=== PATIENT | male | born 1985 | race African-American/Black ===

== ENCOUNTER 2018-04-28 07:31 | Emergency (ER) | payer SELFPAY ==
--- NOTE | 2018-04-28 07:54 | ED ---
HPI Chest Pain - HPI Summary HPI Summary: This patient is a 33 year old male presenting to [facility] accompanied by police with a chief complaint of chest pain since the middle of the night. Patient states that he woke up in the middle of the night with the pain, describing it as squeezing. Patient started feeling numb from the left side of his chest to bilateral fingertips, then states the sensation spread to the whole body and face. Patient states the pain radiated to his legs as well. Patient then states he had blurry vision. The pain is rated 10/10 in severity. Symptoms aggravated by nothing. Symptoms alleviated by nothing. Patient additionally reports back pain. Patient denies a hx of diabetes, HTN, HLD. He is a former smoker, 1/2ppd for years, but quit a week ago when he was incarcerated. He states he has no drugs or alcohol in his system. - History of Current Complaint Chief Complaint: EDChestPainROMI Time Seen by Provider: 04/28/18 07:35 Hx Obtained From: Patient Onset/Duration: Started Hours Ago, Still Present Timing: Constant Initial Severity: Moderate Pain Intensity: 10 Pain Scale Used: 0-10 Numeric Chest Pain Location: Diffuse Chest Pain Radiates: Yes Chest Pain Radiates To:: Shoulder, Arm, Jaw, Neck, Other - legs Character: Pressure/Squeezing Aggravating Factor(s): Nothing Alleviating Factor(s): Nothing Associated Signs and Symptoms: Positive: Other: - leg pain, numbness, blurred/ dark vision - Allergy/Home Medications Allergies/Adverse Reactions: Allergies Allergy/AdvReac Type Severity Reaction Status Date / Time codeine Allergy Hives Verified 04/28/18 07:45 Home Medications: Home Medications NK [No Home Medications Reported] 04/28/18 [History Confirmed 04/28/18] PMH/Surg Hx/FS Hx/Imm Hx Previously Healthy: Yes Endocrine/Hematology History: Denies: Hx Anticoagulant Therapy, Hx Diabetes, Hx Thyroid Disease Cardiovascular History: Denies: Hx Hypertension, Hx Pacemaker/ICD Respiratory History: Denies: Hx Asthma, Hx Chronic Obstructive Pulmonary Disease (COPD) GI History: Denies: Hx Ulcer History: Denies: Hx Renal Disease Musculoskeletal History: Reports: Hx Back Problems - chronic cervical back pain Sensory History: Reports: Hx Contacts or Glasses Denies: Hx Hearing Aid Opthamlomology History: Reports: Hx Contacts or Glasses Neurological History: Denies: Hx Dementia, Hx Seizures Psychiatric History: Reports: Hx Depression, Hx Suicide Attempt, Hx of Violent Episodes Against Others Denies: Hx Eating Disorder, Hx Panic Disorder, Hx Substance Abuse - Surgical History Surgery Procedure, Year, and Place: PLATE AND SCREWS IN [place]EKBONE LEFT SIDE 2007. wisdom teeth Infectious Disease History: No Infectious Disease History: Denies: Hx Hepatitis, Hx Human Immunodeficiency Virus (HIV), History Other Infectious Disease, Traveled Outside the [place] in Last 30 Days - Family History Known Family History: Negative: Cardiac Disease, Hypertension, Diabetes - Social History Occupation: Unemployed Alcohol Use: Rare Hx Substance Use: Yes Substance Use Type: Reports: Cocaine, Marijuana, Other - hallucinogenics Hx Tobacco Use: Yes Smoking Status (MU): Former Smoker Type: Cigarettes Amount Used/How Often: 1/2 PPD Review of Systems Negative: Fever Positive: Blurred Vision Positive: Chest Pain Positive: Numbness All Other Systems Reviewed And Are Negative: Yes Physical Exam - Summary Physical Exam Summary: VITAL SIGNS: Reviewed. GENERAL: Patient is a well-developed and nourished male who is lying comfortable in the stretcher. Patient is not in any acute respiratory distress. HEAD AND FACE: No signs of trauma. No ecchymosis, hematomas or skull depressions. No sinus tenderness. EYES: PERRLA, EOMI x 2, No injected conjunctiva, no nystagmus. EARS: Hearing grossly intact. Ear canals and tympanic membranes are within normal limits. MOUTH: Oropharynx within normal limits. NECK: Supple, trachea is midline, no adenopathy, no JVD, no carotid bruit, no c- spine tenderness, neck with full ROM. CHEST: Symmetric, no tenderness at palpation LUNGS: Clear to auscultation bilaterally. No wheezing or crackles. CVS: Regular rate and rhythm, S1 and S2 present, no murmurs or gallops appreciated. ABDOMEN: Soft, non-tender. No signs of distention. No rebound no guarding, and no masses palpated. Bowel sounds are normal. EXTREMITIES: FROM in all major joints, no edema, no cyanosis or clubbing. NEURO: Alert and oriented x 3. No acute neurological deficits. Speech is normal and follows commands. SKIN: Dry and warm Triage Information Reviewed: Yes Vital Signs On Initial Exam: Initial Vitals Temp Pulse Resp BP Pulse Ox 99.3 F 82 16 162/101 100 04/28/18 07:36 04/28/18 07:36 04/28/18 07:36 04/28/18 07:36 04/28/18 07:36 Vital Signs Reviewed: Yes Diagnostics - Vital Signs Vital Signs Temp Pulse Resp BP Pulse Ox 04/28/18 07:48 77 17 100 04/28/18 07:36 99.3 F 82 16 162/101 100 - Laboratory Result Diagrams: 04/28/18 07:56 04/28/18 07:56 Lab Statement: Any lab studies that have been ordered have been reviewed, and results considered in the medical decision making process. - Radiology CXR Radiology Interpretation Completed By: Radiologist Summary of Radiographic Findings: CXR reveals, per radiologist, IMPRESSION: NO ACTIVE CARDIOPULMONARY DISEASE. ED physician has reviewed this radiology report. - EKG 0747 Cardiac Rate: NL EKG Rhythm: Sinus Rhythm - 78 BPM Summary of EKG Findings: NSR (78 BPM), no ST elevations, normal axis. 1135 Cardiac Rate: NL EKG Rhythm: Sinus Rhythm - 64 BPM Summary of EKG Findings: An EKG, taken 1135, reveals NSR (64 BPM), no ST elevations, normal axis. Similar to previous EKG. Chest Pain Course/Dx - Course Assessment/Plan: This patient is a 33 year old male presenting to [facility] accompanied by police with a chief complaint of chest pain since the middle of the night. Patient states that he woke up in the middle of the night with the pain, describing it as squeezing. Patient started feeling numb from the left side of his chest to bilateral fingertips, then states the sensation spread to the whole body and face. Patient states the pain radiated to his legs as well. Patient then states he had blurry vision. The pain is rated 10/10 in severity. Symptoms aggravated by nothing. Symptoms alleviated by nothing. Patient additionally reports back pain. Patient denies a hx of diabetes, HTN, HLD. He is a former smoker, 1/2ppd for years, but quit a week ago when he was incarcerated. He states he has no drugs or alcohol in his system. Patient has no past medical history significant for AZ, dyslipidemia, diabetes or sudden . In the ED course the patient was placed in a vehicle monitor technician, he was given aspirin, Lopressor and nitroglycerin. Blood work without any significant abnormality except for creatinine 1.27. Glucose is 113. The troponin 0.00. Second troponin increased to 0.06. Patient reports that he is having more chest tightness therefore the patient was given nitroglycerin, Plavix and heparin. I discussed the case with Dr. Martin from cardiology. He agrees for the patient to be given Plavix 300 mg and Lovenox as well as the nitroglycerin. He will consult for the patient. Second EKG shows an normal sinus rhythm at 62 bpm without any stimulations. I discuss my physical exam, findings and test results with Dr. Ann from the hospitalist services and he agrees to admit patient to his services. Patient is hemodynamically stable alert and oriented x 3. ADDENDUM: After the patient was admitted to Dr. Ann services she reports that she ran the troponin again in the same sample where it came back elevated and the troponin is reported as 0.01. Therefore, she recommends for the patient to be discharged back to detention and follow-up with primary care physician. The patient reports no chest pain at this point and he is feeling better. Therefore the patient will be discharged back to the detention and he was recommended to return to the emergency department if he develops any chest pain , shortness of breath, palpitations, or any other symptom. The patient understands and agrees. - Chest Pain Differential Diagnosis/HQI/PQRI: Acute AZ, ACS, Angina, CHF, Chest Wall, GI Disease, Lower Respiratory Infection - Diagnoses Provider Diagnoses: Chest pain Discharge - Sign-Out/Discharge Documenting (check all that apply): Patient Departure - Discharge Plan Condition: Stable Disposition: HOME Patient Education Materials: Chest Pain (ED) Referrals: Brenna Cardenas MD [Primary Care Provider] - 3 Days Additional Instructions: Return to the ED for any new or worsening symptoms. - Billing Disposition and Condition Condition: STABLE Disposition: Home - Attestation Statements Document Initiated by Wisam: Yes Documenting Scribe: Ricardo Riley Provider For Whom Wisam is Documenting (Include Credential): Hardeep Howe MD Scribe Attestation: Ricardo Hart scribed for Hardeep Howe MD on 04/28/18 at 1846. Scribe Documentation Reviewed: Yes Provider Attestation: The documentation as recorded by the Ricardo garrison accurately reflects the service I personally performed and the decisions made by me, Hardeep Howe MD
[2018-04-28] MEDS ORDERED: Nitroglycerin TAB 0.4 MG* 0.4 MG TAB SL ONE ×2 (07:55→11:32)
[2018-04-28] MEDS ORDERED: Aspirin 81 mg CHEW TAB* 81 MG TAB.CHEW PO ONE (07:55)
[2018-04-28 08:07] LABS: ABS Basophils 0.1 10^3/ul (0-0.2); ABS Eosinophils 0 10^3/ul (0-0.6); ABS Lymphocytes 3.8 10^3/ul (1.0-4.8); ABS Monocytes 0.5 10^3/ul (0-0.8); ABS Neutrophils 3.9 10^3/ul (1.5-7.7); ABS Nucleated RBC 0 10^3/ul; Eosinophil % 0.6 % (0-6); Hematocrit 46 % (42-52); Hemoglobin 15.6 g/dl (14.0-18.0); Lymphocyte % 45.9 % (25-47); Mean Corpuscular HGB Conc 34 g/dl (31-36); Mean Corpuscular Hemoglobin 32 pg (27-31); Mean Corpuscular Volume 93 fL (80-94); Mean Platelet Volume 7.7 fL (7.4-10.4); Nucleated Red Blood Cells % 0.1; Platelet Count 346 10^3/ul (150-450); Red Blood Count 4.92 10^6/ul (4.00-5.40); Red Cell Distribution Width 13 % (10.5-15); White Blood Count 8.4 10^3/ul (3.5-10.8)
[2018-04-28 08:29] LABS: EGFR Non-African American 64.9 (>60)
[2018-04-28] MEDS ORDERED: Ketorolac INJ* 30 MG/ML 1 ML VIAL IV PUSH ONE (08:56)
[2018-04-28] MEDS ORDERED: Ketorolac INJ* 30 MG/ML 1 ML VIAL ONE (08:57)
[2018-04-28] MEDS ORDERED: Metoprolol Tartrate TAB* 25 MG PO ONE (11:32)
[2018-04-28] MEDS ORDERED: Clopidogrel TAB* 300 MG PO ONE (11:39)
[2018-04-28] MEDS ORDERED: Enoxaparin(*) 100 MG/ML SYR SUBCUT ONE (11:39)
[2018-04-28 14:23] VITALS: BP 144/87
--- NOTE | 2018-04-28 20:25 | CONS ---
CC: Dr. Cardenas * HOSPITAL MEDICINE CONSULTATION REPORT: DATE OF CONSULT: 04/28/18 - EMERGENCY DEPT PRIMARY CARE PHYSICIAN: Dr. Cardenas. ATTENDING PHYSICIAN: Marion Ann DO (dictation provided by Dianna Castillo NP) REASON FOR CONSULT: Question regarding need for admission. HISTORY OF PRESENT ILLNESS: Mr. De Guzman is a 33-year-old male with no significant past medical history, who presented to the hospital today with concern for chest pain. Mr. De Guzman was arrested about a week ago and has been in correction since that time. Last night he was awoken in the middle of the night with the sudden onset of chest discomfort. He describes pain radiating up from his stomach and down from his shoulder into his chest. He had numbness and tingling in his face, arms, and legs. He was able to fall back asleep, but then awoke several times with these symptoms again. He felt like he could not see at one point and he had pain down into his left knee. He presented to the emergency room for evaluation. The patient had labs which showed a troponin of 0.00 and then a followup troponin which was initially read at 0.06. The patient 's case was reviewed with Dr. Martin and Hospital Medicine was called regarding consultation for possible need for admission. PAST MEDICAL HISTORY: None. MEDICATIONS: None. ALLERGIES: None. FAMILY HISTORY: Negative for cardiac disease, hypertension, or diabetes. SOCIAL HISTORY: He is a former smoker, but has quit since being incarcerated. No report of recent alcohol or drug use. REVIEW OF SYSTEMS: A 14-point review of systems was completed with the patient and all those not mentioned above were negative. PHYSICAL EXAM: General: Mr. De Guzman is sitting up in the bed, he is in no acute distress. Vital Signs: Temperature 98.8, pulse rate 70, respiratory rate 18, O2 saturation 97% on room air, blood pressure 144/87. Neuro: He is alert, he is oriented x3. He moves all extremities equally. There is no facial asymmetry or focal weakness. Extraocular movements are intact. Heart: S1, S2. No murmur, rub, or gallop and regular. Lungs are clear to auscultation bilaterally with no accessory muscle use and good aeration. The abdomen is soft , nontender, with bowel sounds positive x4. Extremities: No cyanosis or edema. Skin is intact. DIAGNOSTIC STUDIES/LAB DATA: Sodium 140, potassium 3.6, chloride 101, serum bicarbonate 24, BUN 13, creatinine 1.27, glucose 113. Troponin 0.00, repeat troponin was initially read at 0.06, but is now 0.01 on repeat read run by the lab and then a third troponin is 0.00. The patient's WBC 8.4, hemoglobin 15.6, hematocrit 46, platelet count 346,000. EKG shows a sinus rhythm with no evidence of ischemia. ASSESSMENT AND PLAN: Mr. De Guzman is a 33-year-old male who presented today to the hospital with a concern for chest pain associated with numbness and tingling throughout the body. His symptoms are not suspicious for coronary artery disease in general and workup has been negative. His initial second troponin was 0.06; however, I called the lab and had them re-run this exact same sample and it came back at 0.01. The troponin prior to that was 0.00 and there was troponin after that, was also 0.00. I think the 0.06 was a lab error and this would be more consistent with the patient's overall presentation and the other troponins and his EKG. I recommend the patient can be discharged back to the correction and I suspect his symptoms are likely related to anxiety and panic. If he has any further issues, he can follow up with the providers there at the correction and/or Dr. Cardenas. TIME SPENT: Approximately 30 minutes were spent in the consultation of this patient, more than half that time was spent with the patient at the bedside reviewing the events leading up to this consultation, performing the physical examination, and reviewing my recommendations. DIANNA CASTILLO NP [id number]/CPS #: [id number] ADRIANO
== END 2018-04-28 14:22 | disposition home or self-care (01) ==
LOC: ED 07:31
DX: R07.89 Other chest pain (principal); M79.605 Pain in left leg; M79.604 Pain in right leg; R20.0 Anesthesia of skin; H53.8 Other visual disturbances; Z88.5 Allergy status to narcotic agent; Z87.891 Personal history of nicotine dependence
CPT/HCPCS: 36415; 71045; 80053; 82550; 82553; 83605; 83735; 83880; 84443; 84484; 85025; 85379; 86703; 93005; 96372; 96374; 99284; A9270-GY; J1650; J1885

== ENCOUNTER 2018-12-28 13:33 | Emergency (ER) | payer OTHER ==
[2018-12-28 14:18] LABS: Rapid Strep Molecular Negative (Negative)
--- NOTE | 2018-12-28 15:34 | ED ---
Throat Pain/Nasal Congestion - HPI Summary HPI Summary: Pt. is a 33 y.o who presents to the ER for a sore throat x 3-4 days. Pt. notes fever, chills and ear pain as well. Denies N/V/D, abd. pain, rash, cough. No significant past medical hx. Sxs are mild in severity. Pt. states he was seen by [facility] earlier this week and dx with a viral infection. - History of Current Complaint Chief Complaint: EDThroatPain Time Seen by Provider: 12/28/18 14:46 Hx Obtained From: Patient - Allergies/Home Medications Allergies/Adverse Reactions: Allergies Allergy/AdvReac Type Severity Reaction Status Date / Time No Known Allergies Allergy Verified 12/28/18 13:42 PMH/Surg Hx/FS Hx/Imm Hx Previously Healthy: Yes Endocrine/Hematology History: Denies: Hx Anticoagulant Therapy, Hx Diabetes, Hx Thyroid Disease Cardiovascular History: Denies: Hx Hypertension, Hx Pacemaker/ICD Respiratory History: Denies: Hx Asthma, Hx Chronic Obstructive Pulmonary Disease (COPD) GI History: Denies: Hx Ulcer History: Denies: Hx Renal Disease Musculoskeletal History: Reports: Hx Back Problems - chronic cervical back pain Sensory History: Reports: Hx Contacts or Glasses Denies: Hx Hearing Aid Opthamlomology History: Reports: Hx Contacts or Glasses Neurological History: Denies: Hx Dementia, Hx Seizures Psychiatric History: Reports: Hx Anxiety, Hx Depression, Hx Suicide Attempt, Hx of Violent Episodes Against Others Denies: Hx Eating Disorder, Hx Panic Disorder, Hx Substance Abuse - Surgical History Surgery Procedure, Year, and Place: PLATE AND SCREWS IN [place]EKBONE LEFT SIDE 2007. wisdom teeth Infectious Disease History: No Infectious Disease History: Denies: Hx Hepatitis, Hx Human Immunodeficiency Virus (HIV), History Other Infectious Disease, Traveled Outside the [place] in Last 30 Days - Family History Known Family History: Positive: Non-Contributory Negative: Cardiac Disease, Hypertension, Diabetes - Social History Occupation: Unemployed Lives: With Family Alcohol Use: None Hx Substance Use: Yes Substance Use Type: Reports: None Hx Tobacco Use: Yes Smoking Status (MU): Current Every Day Smoker Type: Cigarettes Amount Used/How Often: 1/2 PPD Review of Systems Positive: Fever, Chills Eyes: Negative Positive: Sore Throat, Ear Ache Cardiovascular: Negative Respiratory: Negative Negative: Shortness Of Breath, Cough Gastrointestinal: Negative Negative: Abdominal Pain, Vomiting, Diarrhea Genitourinary: Negative Musculoskeletal: Negative Skin: Negative Negative: Rash Neurological: Negative All Other Systems Reviewed And Are Negative: Yes Physical Exam Triage Information Reviewed: Yes Vital Signs On Initial Exam: Initial Vitals Temp Pulse Resp BP Pulse Ox 99.2 F 83 16 156/116 99 12/28/18 13:37 12/28/18 13:37 12/28/18 13:37 12/28/18 13:37 12/28/18 13:37 Vital Signs Reviewed: Yes Appearance: Positive: Well-Appearing - Pt. sitting on bed in NAD. Skin: Positive: Warm, Dry Head/Face: Positive: Normal Head/Face Inspection Eyes: Positive: Normal, EOMI, FELICIANO ENT: Positive: Other - Left TM unremarkable. Fluid level to right TM without erythema. Oral pharynx injected with large tonsilar edema and excudate on the right. Mild edema on the left. No trismus, muffled voice, or deviation of uvula. Neck: Positive: Supple, Enlarged Nodes @ - bilateral cervical. Negative: Nuchal Rigidity Respiratory/Lung Sounds: Positive: Clear to Auscultation, Breath Sounds Present. Negative: Rales, Rhonchi, Wheezes Cardiovascular: Positive: Normal, RRR Musculoskeletal: Positive: Normal, Strength/ROM Intact Neurological: Positive: Normal, CN Intact II-III Psychiatric: Positive: Affect/Mood Appropriate Diagnostics - Vital Signs Vital Signs Temp Pulse Resp BP Pulse Ox 12/28/18 13:37 99.2 F 83 16 156/116 99 - Laboratory Lab Results: Lab Results 12/28/18 Range/Units 13:41 Group A Strep Rapid Negative (Negative) Lab Statement: Any lab studies that have been ordered have been reviewed, and results considered in the medical decision making process. EENT Course/Dx - Course Course Of Treatment: Pt. presenting with tonsilar edema and exudate. No signs of abscess at this time. Rapid strep negative. Suspect bacterial infection and possible early start to a tonsilar abscess. Will tx with clindamycin. Pt. to f.u with pcp in 2-3 days for recheck. Increase fluids. Tylenol or motrin for pain and rever as directed. Given return precautions. Pt. understands and agrees with plan. - Differential Diagnoses Differential Diagnoses: Otitis Media, Periodontic Abscess, Pharyngitis, Tonsilitis - Diagnoses Provider Diagnoses: Exudative tonsillitis Discharge - Sign-Out/Discharge Documenting (check all that apply): Patient Departure Patient Received Moderate/Deep Sedation with Procedure: No - Discharge Plan Condition: Good Disposition: HOME Prescriptions: Clindamycin HCl 300 mg PO Q8H #30 capsule Clindamycin HCl 300 mg PO Q8H #30 capsule Patient Education Materials: Tonsillitis (ED) Referrals: Anca Mooney NP [Primary Care Provider] - Additional Instructions: Follow up with PCP in 2-3 days Take antibiotic as directed Continue ibuprofen as directed Increase fluids Return to ER if symptoms change or worsen - Billing Disposition and Condition Condition: GOOD Disposition: Home
[2018-12-28 15:42] VITALS: BP 146/90
== END 2018-12-28 15:41 | disposition home or self-care (01) ==
LOC: ED 13:33
DX: J03.90 Acute tonsillitis, unspecified (principal); F17.210 Nicotine dependence, cigarettes, uncomplicated
CPT/HCPCS: 87651; 99282

== ENCOUNTER 2019-07-29 09:58 | Emergency (ER) | payer OTHER ==
[2019-07-29] MEDS ORDERED: Ketorolac *IM* INJ* 60 MG/2 ML VIAL IM ONE ×2 (13:39)
--- NOTE | 2019-07-29 13:56 | ED ---
Back Pain - HPI Summary HPI Summary: This patient is a 34-year-old male with no significant past medical history who presents to the ED with right-sided low back pain radiating into the right buttocks and hamstring. Patient states this is been happening since 3 days ago. He denies any injury. Denies any strain or trauma to the area. Denies any bladder or bowel dysfunction. Denies any numbness or tingling patient has never had these symptoms in the past. No diagnosis of sciatica. No abdominal pain, nausea or vomiting. He has not taken any [id number] medication for relief. - History of Current Complaint Chief Complaint: EDBackInjuryPain Stated Complaint: LOWER BACK PAIN PER PT Time Seen by Provider: 07/29/19 11:56 Hx Obtained From: Patient Onset/Duration: Sudden Onset Onset/Duration: Started Days Ago Timing: Constant Back Pain Location: Is Discrete @ Pain Intensity: 7 Pain Scale Used: 0-10 Numeric Character: Aching Aggravating Symptom(s): Movement, Lifting, Bending Alleviating Symptom(s): Rest, Position, Heat Associated Signs And Symptoms: Negative: Swelling, Redness, Bruising, Weakness, Numbness, Bladder Incontinence, Bowel Incontinence, Weight Loss, Pain with Weight Bearing - Risk Factors AAA Risk Factors: Negative TAD Risk Factors: Negative Cauda Equina Risk Factors: Negative Epidural Abscess Risk Factors: Negative - Allergies/Home Medications Allergies/Adverse Reactions: Allergies Allergy/AdvReac Type Severity Reaction Status Date / Time No Known Allergies Allergy Verified 12/28/18 13:42 PMH/Surg Hx/FS Hx/Imm Hx Previously Healthy: Yes Endocrine/Hematology History: Denies: Hx Anticoagulant Therapy, Hx Diabetes, Hx Thyroid Disease Cardiovascular History: Denies: Hx Hypertension, Hx Pacemaker/ICD Respiratory History: Denies: Hx Asthma, Hx Chronic Obstructive Pulmonary Disease (COPD) GI History: Denies: Hx Ulcer History: Denies: Hx Renal Disease Musculoskeletal History: Reports: Hx Back Problems - chronic cervical back pain Sensory History: Reports: Hx Contacts or Glasses Denies: Hx Hearing Aid Opthamlomology History: Reports: Hx Contacts or Glasses Neurological History: Denies: Hx Dementia, Hx Seizures Psychiatric History: Reports: Hx Anxiety, Hx Depression, Hx Suicide Attempt, Hx of Violent Episodes Against Others Denies: Hx Eating Disorder, Hx Panic Disorder, Hx Substance Abuse - Surgical History Surgery Procedure, Year, and Place: PLATE AND SCREWS IN [place] LEFT SIDE 2007. wisdom teeth - Immunization History Hx Pertussis Vaccination: No Immunizations Up to Date: Yes Infectious Disease History: No Infectious Disease History: Denies: Hx Hepatitis, Hx Human Immunodeficiency Virus (HIV), History Other Infectious Disease, Traveled Outside the [place] in Last 30 Days - Family History Known Family History: Positive: Non-Contributory Negative: Cardiac Disease, Hypertension, Diabetes - Social History Occupation: Employed Full-time Lives: With Family Alcohol Use: None Hx Substance Use: Yes Substance Use Type: Reports: None Hx Tobacco Use: Yes Smoking Status (MU): Current Every Day Smoker Type: Cigarettes Amount Used/How Often: 1/2 PPD Review of Systems Negative: Fever, Chills, Skin Diaphoresis Negative: Palpitations, Chest Pain Negative: Shortness Of Breath, Cough Negative: Abdominal Pain, Vomiting, Diarrhea, Nausea Genitourinary: Negative Positive: no symptoms reported, see HPI Positive: Arthralgia - right low back pain Skin: Negative All Other Systems Reviewed And Are Negative: Yes Physical Exam Triage Information Reviewed: Yes Vital Signs On Initial Exam: Initial Vitals Temp Pulse Resp BP Pulse Ox 98.1 F 80 16 140/90 97 07/29/19 10:11 07/29/19 10:11 07/29/19 10:11 07/29/19 10:11 07/29/19 10:11 Vital Signs Reviewed: Yes Appearance: Positive: Well-Appearing, Well-Nourished Skin: Positive: Warm, Skin Color Reflects Adequate Perfusion Head/Face: Positive: Normal Head/Face Inspection Eyes: Positive: EOMI, FELICIANO, Conjunctiva Clear Neck: Positive: Supple Respiratory/Lung Sounds: Positive: Clear to Auscultation, Breath Sounds Present Cardiovascular: Positive: RRR, Pulses are Symmetrical in both Upper and Lower Extremities Musculoskeletal: Positive: Pain @ - right sciatic notch - no step off to the spine Neurological: Positive: Speech Normal Psychiatric: Positive: Normal, Affect/Mood Appropriate AVPU Assessment: Alert Procedures - Sedation Patient Received Moderate/Deep Sedation with Procedure: No Diagnostics - Vital Signs Vital Signs Temp Pulse Resp BP Pulse Ox 07/29/19 10:11 98.1 F 80 16 140/90 97 - Laboratory Lab Statement: Any lab studies that have been ordered have been reviewed, and results considered in the medical decision making process. Back Pain Course/Dx - Course Course Of Treatment: Physical examination, patient is endorsing pain directly over the sciatic notch radiating down into the buttocks as well as into the left hamstring. He is endorsing of 5/10 pain without numbness or tingling. No weakness noted in the bilateral lower extremities. No bladder or bowel dysfunction. Patient is able to rotate about the hips and flex and extend at the hips without discomfort. No pain to the knees bilaterally. He has not taken medication [id number] for relief. He was given a Toradol IM in the ED as well as prednisone 50 mg. He will be prescribed 50 mg prednisone and Toradol as outpatient. He is also given Flexeril. Pt is dx with sciatica and lumbar radiculopathy. - Diagnoses Differential Diagnosis/HQI/PQRI: Positive: Fracture, Herniated Disc, Strain, Sprain Provider Diagnoses: Sciatica Discharge ED - Sign-Out/Discharge Documenting (check all that apply): Patient Departure - Discharge Plan Condition: Stable Disposition: HOME Prescriptions: Cyclobenzaprine TAB* [Flexeril TAB*] 10 mg PO BID PRN #10 tab PRN Reason: Spasms Ketorolac TAB * [Toradol TAB *] 10 mg PO Q6H #16 tab predniSONE 50 mg TAB [Deltasone 50 mg TAB] 50 mg PO DAILY #4 tab MDD 1 Patient Education Materials: Sciatica (ED), Lumbar Radiculopathy (ED), Lower Back Exercises (ED) Referrals: Anca Mooney NP [Primary Care Provider] - Additional Instructions: Toradol 10 mg 4 times daily, do not take NSAIDs will taking this medication Flexeril twice daily 5 days as needed Prednisone once daily 5 days, take this in the morning, you will start this medication tomorrow Moist heat to the area - Billing Disposition and Condition Condition: STABLE Disposition: Home
[2019-07-29 14:08] VITALS: BP 120/79
== END 2019-07-29 14:07 | disposition home or self-care (01) ==
LOC: ED 09:58
DX: M54.30 Sciatica, unspecified side (principal); F41.9 Anxiety disorder, unspecified; F17.210 Nicotine dependence, cigarettes, uncomplicated
CPT/HCPCS: 96372; 99282; J1885; J7512